=== PATIENT | male | born 1995 | race Caucasian/White ===

== ENCOUNTER 2022-07-13 21:05 | Emergency (ER) | payer OTHER ==
[~2022-07-13] VITALS: Ht 182.9 cm; Wt 136.1 kg
[2022-07-13 23:20] VITALS: BP 120/64; TEMP 98.4
== END 2022-07-13 23:20 | disposition home or self-care (01) ==
LOC: ED 21:05
DX: L03.211 Cellulitis of face (principal)
CPT/HCPCS: 36415; 96365; 96372; 99284; J1885